=== PATIENT | male | born 1960 | race Caucasian/White ===

== ENCOUNTER 2019-01-01 08:40 | Day surgery (SDC) | payer OTHER ==
[2018-12-28 15:46] VITALS: BMI 20.6
[~2019-01-01 08:40] MED LIST: LACTATED RINGERS 1,000 ML IV SCH; LIDOCAINE 1% 20 ML VIAL (10MG/ML) FOR IV START INTRADERMA PRN
[2019-01-01 09:04] VITALS: RESP 16; TEMP 98.1
[2019-01-01] MEDS ORDERED: LIDOCAINE 1% INJ 10MG/ML (20 ML MDV) ONE (09:16)
[2019-01-01] MEDS ORDERED: PROPOFOL 10 MG/ML 20 ML VIAL IV ONE (09:16)
--- NOTE | 2019-01-01 09:50 | P.PCN ---
Date of Procedure: 01/01/19 Procedure(s) Performed: Procedure: Total colonoscopy. Preoperative diagnosis: Screening for neoplasia. Postoperative diagnosis: Significant diverticulosis with no evidence of acute diverticulitis, strictures, polyps or cancer. Preparation: HalfLytely prep. Sedation: Was provided by anesthesia. Brief clinical history: The patient is a 58-year-old male who is scheduled for this evaluation for screening for neoplasia age being his risk factor. He had a prior exam more than 11 years ago. There is no history of polyps. The patient has no abdominal complaints, bleeding or anemia. Procedure: With the patient on his left lateral decubitus position and after informed consent and adequate sedation, the perianal area was inspected and it did not show any fissures or fistulas. There were no masses felt on digital rectal examination. The Olympus CFH 190L video colonoscope was then inserted in the rectum in the usual fashion and advanced to the cecum. There was significant diverticular disease noted with multiple diverticular orifices seen scattered along the length of the bowel including the right side and around the hepatic flexure. There was no evidence of acute diverticulitis or strictures. The mucosa appeared healthy. No polyps or tumors were seen. I retroflexed the endoscope in the rectum before the endoscope was withdrawn. The patient tolerated the procedure well. Plan: The patient was reassured. Discussed dietary measures. He will follow up with you as planned and I recommended repeat exam in 10 years.
[2019-01-01 10:05] VITALS: BP 119/76; PULSE 60
== END 2019-01-01 10:25 | disposition home or self-care (01) ==
LOC: ORWHC2ENDO 08:40
DX: Z12.11 Encounter for screening for malignant neoplasm of colon (principal); K57.30 Diverticulosis of large intestine without perforation or abscess without bleeding; J44.9 Chronic obstructive pulmonary disease, unspecified
CPT/HCPCS: J2001; J2704; G0121

== ENCOUNTER → 2020-11-17 | Outpatient (CLI) | payer OTHER ==
--- NOTE | 2020-11-17 09:56 | CTL ---
EXAMINATION TYPE: CT Low Dose Lung DATE OF EXAM ORDERED: 11/17/2020 HISTORY: [facility] tobacco use. Lung cancer screening CT DLP: [address] CTDI: 1.53 mGy Automated exposure control for dose reduction was used. SCREENING VISIT: Initial study COMPARISON: None. TECHNIQUE: Low dose computed tomography scan was performed through the chest at 1 mm thick sections a nd reconstructed images in the coronal plane at [address] DIAGNOSTIC QUALITY: Satisfactory FINDINGS: LUNG NODULES: Present, detailed below: There is 5.9 x 4.0 mm nodule right mid to lower lung axial image 247. No greater than 6 mm noncalcified nodules. LUNGS: COPD: Severity: Mild to moderate Fibrosis: Severity: Mild to moderate in the apices with upper lung extension. Lymph nodes: None. Other findings: None. RIGHT PLEURAL SPACE: Effusion: None Calcification: None Thickening: None Pneumothorax: None LEFT PLEURAL SPACE: Effusion: None Calcification: None Thickening: None Pneumothorax: None HEART: Heart Size: Normal Coronary calcification: None Pericardial effusion: Trace OTHER FINDINGS: Upper abdomen: None Bony thorax: No suspicious abnormality. Supraclavicular region: Osseous abnormality. Other: No significant abnormality. IMPRESSION: Mild/moderate emphysematous change without greater than [address] LUNG RAD AND CT CHEST RECOMMENDATION: Lung-Rad 2 Benign Appearance or Behavior: Continue annual sc reening with LDCT in 12 months. S Modifier (other clinically significant findings): None
== END | disposition home or self-care (01) ==
LOC: RADCTMAIN 08:10
PROVIDERS: ATTEND Family Medicine
DX: Z12.2 Encounter for screening for malignant neoplasm of respiratory organs (principal); R91.8 Other nonspecific abnormal finding of lung field; Z87.891 Personal history of nicotine dependence
CPT/HCPCS: 71271

== ENCOUNTER → 2023-11-03 | Outpatient (CLI) | payer OTHER ==
--- NOTE | 2023-11-03 07:56 | US ---
EXAMINATION TYPE: US Aorta Screening DATE OF EXAM: 11/03/2023 COMPARISON: NONE CLINICAL INDICATION: Male, 63 years old with history of Z87.891 PERSONAL HISTORY OF NICOTINE DEPENDEN CE; Current smoker. No HTN. No family history of AAA. TECHNIQUE: Multiple sonographic images of the abdominal aorta are obtained. 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 Proximal Aorta appears ectatic. Atherosclerotic changes seen. IMPRESSION: No evidence for abdominal aortic aneurysm.
== END | disposition home or self-care (01) ==
LOC: RADUSWWP 07:00
PROVIDERS: ATTEND Family Medicine
DX: Z13.6 Encounter for screening for cardiovascular disorders (principal); Z87.891 Personal history of nicotine dependence
CPT/HCPCS: 76706

== ENCOUNTER → 2024-11-23 | Outpatient (CLI) | payer OTHER ==
--- NOTE | 2024-11-24 12:03 | CTL ---
EXAMINATION TYPE: CT Low Dose Lung DATE OF EXAM: 11/23/2024 7:40 AM COMPARISON: None. SCREENING VISIT: 11/17/2020 CT DIAGNOSTIC QUALITY: Satisfactory CLINICAL INDICATION: Male, 64 years old with history of Z12.2 LUNG SCREENING F17.210 CURRENT SMOKER, Lung screening for malignant neoplasm, current smoker, Lung cancer screening, History of tobacco use. TECHNIQUE: Low dose computed tomography scan was performed through the chest at 1 mm thick sections a nd reconstructed images in the coronal plane at 1 mm thick sections. Contrast used: mL of , (none if empty) Oral contrast used: (none if empty) CT DLP: 74.80 mGycm, Automated exposure control for dose reduction was used. CT CTDI: 1.50 mGy, Automated exposure control for dose reduction was used. FINDINGS: LUNG NODULES: Present, detailed below: 1. There is a pleural-based density in the posterior right upper lobe measuring 1.2 cm. Series 4 imag e 55. This was present previously 2. There is a 0.4 cm nodule posterior lateral left upper lung field. Series 4 image 55. 3. There is a faint 0.5 cm nodularity posterior lateral left lung. Series 4 image 85. LUNGS: COPD: Severity: Mild Fibrosis: Severity: None Lymph nodes: None Other findings: None RIGHT PLEURAL SPACE: Effusion: None Calcification: None Thickening: None Pneumothorax: None LEFT PLEURAL SPACE: Effusion: None Calcification: None Thickening: None Pneumothorax: None HEART: Other: Ascending thoracic aorta at the level the main pulmonary artery measures 3.8 cm. The main pul monary artery at the bifurcation measures 2.2 cm. Heart Size: Normal Coronary calcification: No significant coronary artery calcifications. Pericardial effusion: None OTHER FINDINGS: Upper abdomen: Normal Bony thorax: Normal Supraclavicular region: Normal IMPRESSION: Scattered upper lobe densities. Follow-up recommended. FOLLOW UP CT CHEST RECOMMENDATION: Benign appearance. CT LUNG RAD: Lung-Rad 2 Benign Appearance or Behavior [facility], Workstation: [id number] [employer], 11/24/2024 12:01 PM
== END | disposition home or self-care (01) ==
LOC: RADCTMAIN 06:43
PROVIDERS: ATTEND Internal Medicine Pulmonary Disease
DX: Z12.2 Encounter for screening for malignant neoplasm of respiratory organs (principal); F17.210 Nicotine dependence, cigarettes, uncomplicated; J98.4 Other disorders of lung; J44.9 Chronic obstructive pulmonary disease, unspecified
CPT/HCPCS: 71271